=== PATIENT | male | born 1965 | race Two or more races ===

== ENCOUNTER 2019-06-25 16:00 | Day surgery (SDC) | payer BC ==
[~2019-06-25] VITALS: Ht 172.7 cm; Wt 74.8 kg
[2019-06-25 16:46] VITALS: BP 142/89
== END 2019-06-25 21:20 | disposition home or self-care (01) ==
LOC: OR 16:00 → 4NOR 20:30 → OR 21:20
PROVIDERS: ATTEND Orthopaedic Surgery
DX: S63.641A Sprain of metacarpophalangeal joint of right thumb, initial encounter (principal); X58.XXXA Exposure to other specified factors, initial encounter; Y93.89 Activity, other specified; Y92.89 Other specified places as the place of occurrence of the external cause; Y99.8 Other external cause status
CPT/HCPCS: 26541; 73120; 76000; C1713; J0690; J1100; J1170; J2250; J2405; J2704; J3010; J3490; J7120; G0378